=== PATIENT | female | born 1950 | race Caucasian/White ===

== ENCOUNTER 2025-01-11 18:59 | Emergency (ER) | payer MEDICARE, OTHER ==
[~2025-01-11] VITALS: Ht 170.2 cm; Wt 81.6 kg
[2025-01-11 19:04] VITALS: BP 146/75; TEMP 98.4
[2025-01-11] MEDS ORDERED: POLY15DR31 RIGHTEYE (19:28)
[2025-01-11 19:34] VITALS: O2SAT 97
== END 2025-01-11 19:35 | disposition home or self-care (01) ==
LOC: ER 19:04
DX: H11.31 Conjunctival hemorrhage, right eye (principal); F17.200 Nicotine dependence, unspecified, uncomplicated

== ENCOUNTER 2025-01-18 11:13 | Emergency (ER) | payer MEDICARE, OTHER ==
[~2025-01-18] VITALS: Ht 167.6 cm; Wt 81.6 kg
[~2025-01-18 11:13] MED LIST: POLY15DR31 RIGHTEYE
[2025-01-18 11:22] VITALS: BP 145/76; TEMP 98.2; O2SAT 94
== END 2025-01-18 11:38 | disposition home or self-care (01) ==
LOC: ER 11:18
DX: H11.31 Conjunctival hemorrhage, right eye (principal)